=== PATIENT | female | born 1945 | race Caucasian/White ===

== ENCOUNTER 2023-11-10 13:29 | Emergency (ER) | payer MEDICARE, SELFPAY ==
[2023-11-10 13:32] VITALS: BP 216/91; PULSE 71; O2SAT 95; BMI 33.3
--- NOTE | 2023-11-10 13:40 | XRR_ITS ---
PROCEDURE INFORMATION: Exam: XR Chest Exam date and time: 11/10/2023 1:57 PM Age: 77 years old Clinical indication: Cough and dyspnea; Patient HX: Syncope episodes, lightheaded x 3 wks, denies fall; Additional info: Dyspnea/cough TECHNIQUE: Imaging protocol: Radiologic exam of the chest. Views: 1 view. COMPARISON: No relevant prior studies available. FINDINGS: Lungs: Mild opacity at the left lung base is probably due to overlying soft tissues although a minimal infiltrate may be present. Pleural spaces: Unremarkable. No pleural effusion. No pneumothorax. Heart/Mediastinum: Unremarkable. No cardiomegaly. Bones/joints: Unremarkable. XR/XR chest 1V portable [id number] IMPRESSION: Slightly increased density on the left.
--- NOTE | 2023-11-10 13:40 | ECG_ITS ---
[facility] Test Date: 2023-11-10 Pat Name: Tonia Grayson Department: Room: Gender: Female Knockdown Man: : 1945 Requested By: Heath Rios Order Number: [id number] Iglesia MD: Matt Bryan M.D. Measurements Intervals [place] Rate: 72 P: 56 MS: 256 QRS: 0 QRSD: 97 T: 55 QT: 391 QTc: 428 Interpretive Statements SINUS RHYTHM WITH FIRST DEGREE AV BLOCK LOW QRS VOLTAGE IN PRECORDIAL LEADS [QRS DEFLECTION < 1.0 mV IN CHEST LEADS] PATTERN CONSISTENT WITH PULMONARY DISEASE No previous ECG available for comparison Electronically Signed On 11-10-2023 18:56:53 STRAPPING MACHINE TENDER by Matt Bryan M.D. [id number]
--- NOTE | 2023-11-10 13:41 | ED_ITS ---
HPI - Syncope 2 General: Chief Complaint: Syncope Stated Complaint: Syncope Time Seen by Provider: 11/10/23 13:40 Source: patient Mode of arrival: EMS History of Present Illness: 77-year-old female presents emergency ro om complaining of lightheaded and dizziness that she has near syncopal episodes at night she has a history of ulcerative colitis she is on several blood pressure medications including chlorthalidone and clonidine. She is not taking any of her blood pressure medications this morning she usually takes them a combination of day and nighttime. MD complaint: almost passed out Onset (ago): hour(s) Prodromal symptoms: lightheaded Context: standing up Associated symptoms: Deny abdominal pain, chest pain or fever(s) Treatments prior to arrival: none Review of Systems 2 Const: Denies: fever(s) or chills Card: Denies: chest pain Resp: Denies: dyspnea GI: Denies: abdominal pain : Denies: dysuria, urinary frequency or urinary urgency Musc: Denies: neck pain or back pain Skin/Breast: Denies: rash PFSH ED 2 PFSH: Medical History (Updated 11/10/23 @ 17:35 by Heath Klein DO) HTN (hypertension) Physical Exam 2 Const: COMMON NORMALS: no acute distress GENERAL APPEARANCE: cooperative and comfortable ORIENTATION/CONSCIOUSNESS: Yes awake, Yes oriented to person, Yes oriented to place and Yes oriented to time HENMT: COMMON NORMALS: normocephalic, atraumatic and hearing grossly normal bilaterally HEAD & SCALP: normocephalic and atraumatic Resp: COMMON NORMALS: normal respiratory effort, No retractions, No use of accessory muscles and clear to auscultation bilaterally AUSCULTATION: clear to auscultation bilaterally Cardio: COMMON NORMALS: regular rate, regular rhythm and No murmurs present (Cardio) RATE: regular rate RHYTHM: regular rhythm GI: COMMON NORMALS: Soft to palpation and No hepatosplenomegaly present A USCULTATION: Yes normoactive bowel sounds PALPATION: Yes Soft to palpation, No Tenderness to palpation present (GI), No Guarding due to palpation present (GI) and Yes No hepatosplenomegaly present Extremity: COMMON NORMALS: normal to inspection, capillary refill normal, no clubbing, cyanosis or edema, no calf tenderness and no pedal edema Neuro: SENSORIUM/ORIENTATION: Yes oriented to person, Yes oriented to place and Yes oriented to time Skin: COMMON NORMALS: no rashes or lesions noted GENERAL SKIN EXAM: no rashes or lesions noted Course 2 Vital Signs: Vital signs: Vital Signs Pulse Rate 83 11/10/23 16:00 Respiratory Rate 18 11/10/23 16:00 Blood Pressure 179/92 11/10/23 16:00 Pulse Oximetry 90 11/10/23 16:00 Oxygen Delivery Me thod Room Air 11/10/23 13:32 MDM - Syncope Medical Decision Making Patient has had no further episodes. Blood pressures actually been elevated she had not taken her blood pressure medications today these episodes are all happening at night when she takes her blood pressure medicines. Suspect that the carvedilol and the clonidine are contributing to this will decrease her carvedilol to 12-1/2 twice daily stop the clonidine add amlodipine 5 mg twice daily and follow-up with primary care doctor. Medical Records I reviewed the patient's medical records. Lab Data I reviewed the patient's lab results. 11/10/23 14:06 11/10/23 14:06 Radiology Impressions Chest X-Ray 11/10/23 13:40 IMPRESSION: Slightly increased density on the left. Laboratory Results WBC 16.06 10^3/uL (3.29-11.43) H 11/10/23 14:06 RBC 3.89 10^6/uL (3.85-5.65) 11/10/23 14:06 Hgb 12.60 g/dL (11.27-16.99) 11/10/23 14:06 Hct 37.7 % (36-47) 11/10/23 14:06 MCV 96.9 fl (85-98) 11/10/23 14:06 MCH 32.4 pg (27-33) 11/10/23 14:06 MCHC 33.4 g/dL (30-55) 11/10/23 14:06 RDW 11.8 % (12.1-15.1) L 11/10/23 14:06 Plt Count 324 10^3/cmm (157-399) 11/10/23 14:06 MPV 9.5 fL (7.4-10.4) 11/10/23 14:06 Neut % (Auto) 68.9 % 11/10/23 14:06 Lymph % (Auto) 20.5 % 11/10/23 14:06 [place] % (Auto) 7.9 % 11/10/23 14:06 Eos % (Auto) 1.0 % 11/10/23 14:06 Baso % (Auto) 0.5 % 11/10/23 14:06 Neut # (Auto) 11.06 10^3/uL (1.8-7.7) H 11/10/23 14:06 Lymph # (Auto) 3.3 10^3/uL (0.8-4.8) 11/10/23 14:06 [place] # (Auto) 1.3 10^3/uL (0.2-0.9) H 11/10/23 14:06 Eos # (Auto) 0.2 10^3/uL (0.0-0.8) 11/10/23 14:06 Baso # (Auto) 0.1 10^3/uL (0.0-0.1) 11/10/23 14:06 Nucleated RBC % (auto) 0 % 11/10/23 14:06 Nucleated RBCs # 0.0 /100WBC 11/10/23 14:06 Sodium 136 mmol/L (136-145) 11/10/23 14:06 Potassium 3.7 mmol/L (3.5-5.1) 11/10/23 14:06 Chloride 97 mmol/L (98-107) L 11/10/23 14:06 Carbon Dioxide 28 mmol/L (22-29) 11/10/23 14:06 Anion Gap 14.7 (5-19) 11/10/23 14:06 BUN 52 mg/dL (8-23) H 11/10/23 14:06 Creatinine 1.3 mg/dL (0.5-0.9) H 11/10/23 14:06 GFR Calculation Not Reportable 11/10/23 14:06 Glucose 88 mg/dL (65-115) 11/10/23 14:06 Calculated Osmolality 295 mOsm/kg (285-295) 11/10/23 14:06 Calcium 10.3 mg/dL (8.5-10.5) 11/10/23 14:06 Total Bilirubin 0.3 mg/dL (0.15-1.2) 11/10/23 14:06 AST 17 U/L (0-32) 11/10/23 14:06 ALT 16 U/L (0-33) 11/10/23 14:06 Alkaline Phosphatase 62 U/L (35-105) 11/10/23 14:06 Troponin T Baseline 21 ng/L (0-10) H 11/10/23 14:06 Troponin T 120 Minute 23.57 ng/L (0-10) H 11/10/23 16:34 Delta Troponin T 2.57 ABS# (0-10) 11/10/23 16:34 Total Protein 8.5 g/dL (6.6-8.7) 11/10/23 14:06 Albumin 4.0 g/dL (3.5-5.2) 11/10/23 14:06 Globulin 4.5 g/dL (1.3-4.6) 11/10/23 14:06 Urine Color Yellow (Yellow) 11/10/23 13:50 Urine Appearance Clear (CLEAR) 11/10/23 13:50 Urine pH 6 (5-7) 11/10/23 13:50 Ur Specific [place] 1.015 (1.005-1.030) 11/10/23 13:50 Urine Protein Neg (Negative) 11/10/23 13:50 Urine Glucose (UA) Norm (Normal) 11/10/23 13:50 Urine Ketones Negative (Negative) 11/10/23 13:50 Urine Blood Neg (Negative) 11/10/23 13:50 Urine Nitrate Negative (Negative) 11/10/23 13:50 Urine Bilirubin Neg (Negative) 11/10/23 13:50 Urine Urobilinogen Norm mg/dL (Negative) 11/10/23 13:50 Ur Leukocyte Esterase Negative (Negative) 11/10/23 13:50 All radiology interpretation(s) finalized by discharge Discharge Plan Discharge Patient Disposition: Home Clinical Impression: Syncope due to orthostatic hypotension Condition: Stable Prescriptions: New amlodipine 5 mg tablet 5 mg PO BID Qty: 30 0RF Changed carvedilol 25 mg tablet 12.5 mg PO BID Qty: 30 0RF Discontinued clonidine HCl 0.1 mg tablet 0.1 mg PO DAILY No Action chlorthalidone 25 mg tablet 25 mg PO DAILY amitriptyline 10 mg tablet 10 mg PO BEDTIME olmesartan 40 mg tablet 4 mg PO DAILY Discharge Orders: Discharge ED (Routine); Ordered 11/10/23 Ordered By: Heath Klein Discharge Diet: Usual diet Discharge Activity: Resume usual activity Patient Instructions: Opioid Safety, Pain Management Activity Restrictions/Additional Instructions: Thank you for choosing [facility] for your healthcare needs today. Please realize this is an emergency room and that we are providing you with a medical screening exam and this may not be complete and all inclusive of all the testing and or work up that you may need to determine your ailment or severity of your illness. It is very important that you follow up as instructed or that you return to the Emergency Department should you have concerns or if your condition changes or worsens in any way. You were seen today for near syncopal episodes. Recommend you make the following changes to your blood pressure medications stop the clonidine and decrease the carvedilol to 12 and half milligrams twice daily. You should follow-up with your doctor to reevaluate blood pressure within the next week. 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
[2023-11-10 13:54] LABS: Add Urine Microscopic? NO; Charge for UA Resulting for Rev
[2023-11-10 13:58] LABS: Bilirubin Urine Neg (Negative); Blood Urine Neg (Negative); Glucose Urine UA Norm (Normal); Ketones Urine Negative (Negative); Leukocyte Esterase Urine Negative (Negative); Nitrate Urine Negative (Negative); Protein Urine Neg (Negative); Specific Gravity, Urine 1.015 (1.005-1.030); Urine Appearance Clear (CLEAR); Urine Color Yellow (Yellow); Urobilinogen Urine Norm (Negative); pH Urine 6 (5-7)
--- NOTE | 2023-11-10 14:06 | PC.PHAR ---
PT STATES TAKES CLONIDINE 0.1 MG ONCE DAILY. VERIFIED WITH PHARMACY RX WRITTEN FOR 1 TABLET EVERY 6 HOURS SCHEDULED. LAST FILLED 05/13/23 90DS.
[2023-11-10 14:12] LABS: Basophils # 0.1 10^3/uL (0.0-0.1); Basophils % 0.5 %; Eosinophils # 0.2 10^3/uL (0.0-0.8); Hematocrit 37.7 % (36-47); Lymphocytes # 3.3 10^3/uL (0.8-4.8); Lymphocytes % 20.5 %; Mean Corpuscular HGB Conc 33.4 g/dL (30-55); Mean Corpuscular Hemoglobin 32.4 pg (27-33); Mean Corpuscular Volume 96.9 fl (85-98); Mean Platelet Volume 9.5 fL (7.4-10.4); Monocytes # 1.3 10^3/uL (0.2-0.9); Monocytes % 7.9 %; Neutrophils # 11.06 10^3/uL (1.8-7.7); Neutrophils % 68.9 %; Nucleated Red Blood Cells % 0 %; Platelet Count 324 10^3/cmm (157-399); Red Blood Count 3.89 10^6/uL (3.85-5.65); Red Cell Distribution Width 11.8 % (12.1-15.1); White Blood Count 16.06 10^3/uL (3.29-11.43)
[2023-11-10 14:29] LABS: Troponin(5th) Baseline 21 ng/L (0-10)
[2023-11-10 14:38] LABS: Alanine Aminotransferase 16 U/L (0-33); Alkaline Phosphatase 62 U/L (35-105); Anion Gap 14.7 (5-19); Aspartate Amino Transferase 17 U/L (0-32); Blood Urea Nitrogen 52 mg/dL (8-23); Calcium 10.3 mg/dL (8.5-10.5); Carbon Dioxide 28 mmol/L (22-29); Chloride 97 mmol/L (98-107); Globulin 4.5 g/dL (1.3-4.6); Glucose 88 mg/dL (65-115); Osmolality Calculated 295 mOsm/kg (285-295); Potassium 3.7 mmol/L (3.5-5.1); Sodium 136 mmol/L (136-145); Total Bilirubin 0.3 mg/dL (0.15-1.2); Total Protein 8.5 g/dL (6.6-8.7)
[2023-11-10] MEDS: amlodipine 5 mg Tablet PO (14:46)
[2023-11-10] MEDS: carvedilol 12.5 mg Tablet PO (14:49)
--- NOTE | 2023-11-10 15:40 | ECG_ITS ---
[facility] Test Date: 2023-11-10 Pat Name: Tonia Grayson Department: Room: Gender: Female Director Of Respiratory Therapy: : 1945 Requested By: Heath Rios Order Number: [id number] Iglesia MD: Matt Bryan M.D. Measurements Intervals [place] Rate: 67 P: 44 TX: 229 QRS: 2 QRSD: 102 T: 67 QT: 404 QTc: 428 Interpretive Statements SINUS RHYTHM WITH FIRST DEGREE AV BLOCK LOW QRS VOLTAGE IN PRECORDIAL LEADS [QRS DEFLECTION < 1.0 mV IN CHEST LEADS] NONSPECIFIC ST & T-WAVE ABNORMALITY Compared to ECG 11/10/2023 13:39:46 T-wave abnormality now present Electronically Signed On 11-10-2023 18:59:14 FERRY TERMINAL SUPERVISOR by Matt Bryan M.D. [id number]
[2023-11-10 16:00] VITALS: BP 179/92; PULSE 83; RESP 18; O2SAT 90
[2023-11-10 17:15] LABS: Troponin 5 2HR 23.57 ng/L (0-10); Troponin 5 2HR Delta 2.57 ABS# (0-10)
== END 2023-11-10 17:55 | disposition home or self-care (01) ==
PROVIDERS: Emergency Provider Family Medicine
DX: I95.1 Orthostatic hypotension (principal); I10 Essential (primary) hypertension
CPT/HCPCS: 36415; 71045; 80053; 81003; 84484; 85025; 93005; 99285

== ENCOUNTER 2024-02-18 12:55 | Outpatient (CLI) | payer MEDICARE, SELFPAY ==
--- NOTE | 2024-02-18 13:29 | MR_ITS ---
WS: [id number] MRI BRAIN WITHOUT CONTRAST HISTORY: LEFT SIDED WEAKNESS/DYSGENSIA COMPARISON: None available. TECHNIQUE: Diffusion imaging, multiplanar T1, T2 and FLAIR imaging obtained. No diffusion abnormality. No acute ischemia. There is mild bilateral symmetric atrophy. Numerous tiny T2 and FLAIR signal hyperintensities in the subcortical white matter. These are symmetric throughout the cerebrum. No large territory infarct. No hemorrhage. No prior infarct. Ventricles and extra-axial spaces are normal. No inferior displacement of cerebellar tonsils. The sella turcica and pituitary gland are unremarkabl e. Dural venous sinuses and [place] of [place] demonstrate no abnormality on this unenhanced studies. Paranasal sinuses: Clear. Mastoid air cells: Normal. Calvarium and scalp: Intact. IMPRESSION: 1. No acute infarct. No hemorrhage. 2. Numerous subcortical small foci of increased T2 and FLAIR signal. Differential includes small ves linda ischemic disease, hypertension, migraines, diabetes and smoking history. 3. No prior infarct.
== END 2024-02-18 12:56 | disposition home or self-care (01) ==
LOC: RAD 12:55
PROVIDERS: Visit Provider Family Medicine
DX: M62.81 Muscle weakness (generalized) (principal); R43.2 Parageusia
CPT/HCPCS: 70551